=== PATIENT | male | born 1975 | race African-American/Black ===

== ENCOUNTER 2024-09-01 18:00 | Emergency (ER) | payer MEDICAID ==
[~2024-09-01] VITALS: Ht 177.8 cm; Wt 80.5 kg
[2024-09-01 18:02] VITALS: TEMP 98.2
[2024-09-01] MEDS ORDERED: OMEP-148 PO (18:15)
[2024-09-01] MEDS ORDERED: DIVA-153 PO (18:15)
[2024-09-01] MEDS ORDERED: HALO5TAB2 PO (18:15)
[2024-09-01] MEDS ORDERED: LACT10SO9 PO (18:15)
[2024-09-01] MEDS ORDERED: HALO10TA21 PO (18:15)
[2024-09-01] MEDS ORDERED: METF-1211 PO (18:15)
[2024-09-01] MEDS ORDERED: OLAN10TA74 PO (18:15)
[2024-09-01 19:18] LABS: BASOPHILS % (AUTO) 0.4 % (0.0-2.0); EOSINOPHILS % (AUTO) 0.4 % (1.0-6.0); HEMATOCRIT 38.6 % (41-53); HEMOGLOBIN 12.8 g/dL (13.5-17.5); LYMPHOCYTES # (AUTO) 2.4 K/uL (1.0-4.8); MEAN CORPUSCULAR HEMOGLOBIN 30.9 pg (26.0-34.0); MEAN CORPUSCULAR HGB CONC 33.1 G/dL (31.0-37.0); MEAN CORPUSCULAR VOLUME 94 fL (80-100); MONOCYTES # (AUTO) 0.4 K/uL (0.1-1.0); NEUTROPHILS # (AUTO) 2.7 K/uL (1.8-7.7); NEUTROPHILS % (AUTO) 48.2 % (40.0-70.0); PLATELET COUNT (AUTO) 162 K/uL (150-450); RED BLOOD CELL COUNT(AUTO) 4.13 MIL/uL (4.50-5.90); RED CELL DISTRIBUTION WIDTH 15.2 % (11.5-14.5); WHITE BLOOD COUNT (AUTO) 5.6 K/uL (4.5-11.0)
[2024-09-01 19:28] LABS: ANION GAP 7 mmol/L (8-16); CALCIUM, TOTAL 8.9 mg/dL (8.8-10.5); CARBON DIOXIDE 27 mmol/L (22-29); CHLORIDE 105 mmol/L (98-107); GLOMERULAR FILTR. RATE CALC > 60 mL/min (>60); GLUCOSE,RANDOM 166 mg/dL (70-110); POTASSIUM 3.9 mmol/L (3.5-5.1); SODIUM SERUM 139 mmol/L (136-145); UREA NITROGEN, BLOOD 13 mg/dL (7-18)
[2024-09-01 19:29] VITALS: BP 124/73; PULSE 96; RESP 16; O2SAT 100
[2024-09-01 19:37] LABS: TROPONIN I-HIGH SENSITIVITY 6 ng/L (<76)
[2024-09-01 19:41] LABS: APPEARANCE,URINE CLEAR (CLEAR); BILIRUBIN,URINE NEGATIVE (NEGATIVE); COLOR,URINE YELLOW (YELLOW); GLUCOSE, URINE (UA) NEGATIVE (NEGATIVE); LEUKOCYTE ESTERASE ,URINE NEGATIVE (NEGATIVE); NITRATE,URINE NEGATIVE (NEGATIVE); OCCULT BLOOD,URINE NEGATIVE (NEGATIVE); PROTEIN,URINE TRACE mg/dL (NEGATIVE); SPECIFIC GRAVITIY, URINE 1.029 (1.003-1.030)
[2024-09-01 19:42] LABS: ALCOHOL, BLOOD (SERUM) < 3 mg/dL (0-10)
[2024-09-01 19:44] LABS: BACTERIA,URINE None Seen /HPF (None Seen); RBC,URINE None Seen /HPF (0-2); SQUAMOUS EPITHELIAL CELL,UR None Seen /LPF (None Seen); WBC,URINE None Seen /HPF (0-5)
[2024-09-01 19:47] LABS: ALCOHOL, URINE DRUG SCREEN NEGATIVE (NEGATIVE); AMPHET/METH SCREEN,URINE NEGATIVE (NEGATIVE); BARBITURATE SCREEN, URINE NEGATIVE (NEGATIVE); BENZODIAZEPINES SCREEN,URINE NEGATIVE (NEGATIVE); CANNABINOID SCREEN,URINE NEGATIVE (NEGATIVE); COCAINE SCREEN,URINE NEGATIVE (NEGATIVE); METHADONE SCREEN, URINE NEGATIVE (NEGATIVE); OPIATE SCREEN,URINE NEGATIVE (NEGATIVE); PHENCYCLIDINE SCREEN,URINE NEGATIVE (NEGATIVE)
[2024-09-01] MEDS: LACTULOSE 20 GM/30 ML SOLUTION UDCUP PO ONE (20:02)
== END 2024-09-01 21:22 | disposition home or self-care (01) ==
LOC: EMS 18:00
DX: E72.20 Disorder of urea cycle metabolism, unspecified (principal); F20.9 Schizophrenia, unspecified; F17.210 Nicotine dependence, cigarettes, uncomplicated; Z79.84 Long term (current) use of oral hypoglycemic drugs; Z79.899 Other long term (current) drug therapy
CPT/HCPCS: 99283; 80048; 80164; 82140; 84484; 85025; 36415; 80307; 81001; G0480